=== PATIENT | female | born 1950 | race Caucasian/White ===

== ENCOUNTER 2022-08-09 13:15 | Emergency (ER) | payer BC ==
[2022-08-09] MEDS ORDERED: GLUCAGON 1 MG/VIAL ONE ×2 (13:43→14:15)
[2022-08-09] MEDS ORDERED: ONDANSETRON 4 MG/2 ML VIAL ONE (13:43)
[2022-08-09 13:57] LABS: Absolute Lymphocytes (CBC) 0.8 K/uL (0.7-4.9); Hematocrit 47.1 % (36.0-45.0); MCV 90.2 fL (80-100); MPV 7.3 fL (7.6-11.3); RBC Red Blood Cell Count 5.22 M/uL (3.86-4.86)
[2022-08-09 14:17] LABS: Magnesium 2.3 mg/dL (1.8-2.4); Potassium 3.7 mmol/L (3.5-5.1); Troponin High Sensitivity 4.5 pg/mL (<58.9)
--- NOTE | 2022-08-09 14:32 | RAD REPORT ---
EXAM DESCRIPTION: RAD - Chest Single View - 08/09/2022 2:18 pm CLINICAL HISTORY: dysphagia COMPARISON: No comparisons FINDINGS: Lines: None. Lungs: No evidence of edema or pneumonia. Pleural: No significant pleural effusions or pneumothorax. Cardiac: The heart size is within normal limits. Mediastinum: Within normal limits. Bones: No acute fractures. Other: Large hiatal hernia. IMPRESSION: No acute cardiopulmonary disease. Large hiatal hernia.
--- NOTE | 2022-08-09 15:07 | ER ---
Nurse's Notes [facility] Name: Serenity Barber Age: 72 yrs Sex: Female : 1950 Arrival Date: 08/09/2022 Time: 13:17 Bed 26 Private MD: Diagnosis: Foreign body of alimentary tract, part unspecified, initial encounter;Nausea with vomiting, unspecified Presentation: 08/09 13:25 Chief complaint: Ate roast beef for lunch, feels like it is stuck in throat. hb Coronavirus screen: At this time, the client does not indicate any symptoms associated with coronavirus-19. Ebola Screen: No symptoms or risks identified at this time. Initial Sepsis Screen: Does the patient meet any 2 criteria? No. Patient's initial sepsis screen is negative. Does the patient have a suspected source of infection? No. Patient's initial sepsis screen is negative. Risk Assessment: Do you want to hurt yourself or someone else? Patient reports no desire to harm self or others. Onset of symptoms was August 09, 2022. 13:25 Method Of Arrival: Ambulatory hb 13:25 Acuity: WILMER 3 hb Historical: - Allergies: 13:27 PENICILLINS; hb - PMHx: 17:40 Hypertensive disorder; GERD; Esophageal stricture; kb3 - PSHx: 13:27 Appendectomy; Cholecystectomy; hb 13:52 Esophageal Dilation; hb - Immunization history:: Adult Immunizations up to date, Client reports receiving the 2nd dose of the Covid vaccine, Last tetanus immunization: up to date. - Social history:: Smoking status: Patient denies any tobacco usage or history of. Screenin:30 Abuse screen: Denies threats or abuse. Denies injuries from another. Nutritional hb screening: No deficits noted. Tuberculosis screening: No symptoms or risk factors identified. Fall Risk None identified. Assessment: 13:30 Reassessment: Patient appears in no apparent distress at this time. No changes from previously documented assessment. General: Appears distressed, uncomfortable, Behavior is calm, cooperative, Received care of pt from triage via . PT reports she was eating roast beef around 1200 today. She now reports the feeling of a lodged food bolus in her lower esophagus with associated pain and vomiting. Pt reports she has had 4 esophageal dilation procedures. Pain: Complains of pain in xiphoid area Pain does not radiate. Pain currently is 7 out of 10 on a pain scale. GI: Reports nausea, vomiting, unable to swallow water, feeling of lodged food bolus in lower esophagus. 14:10 General: Pt attempted to drink a few small sips of water but vomited it back up. PA kb3 notified. 14:40 General: Pt tolerating sips of water at this time. Reports she still has the sensation kb3 of a foreign body in the lower esophagus, but it has improved. PA notified. 14:52 General: Pt vomited small amount of water. kb3 17:19 General: Report called to Gabriela ABEBE at [facility]. Pt aware of kb3 pending transfer. No questions at this time. 17:39 General: Reports given to [facility]. Pt states he will travel in in private kb3 vehicle and will take charge of the patient's purse, clothes and cell phone. Vital Signs: 13:25 BP 172 / 111; Pulse 104; Resp 20; Temp 98.3; Pulse Ox 97% on R/A; Weight 70.31 kg; hb Height 5 ft. 2 in. (157.48 cm); Pain 7/10; 14:15 BP 147 / 101; Pulse 97; Resp 20; Pulse Ox 98% ; kb3 14:45 BP 146 / 98; Pulse 95; Resp 18; Pulse Ox 98% ; kb3 15:00 BP 140 / 98; Pulse 93; Resp 18; Pulse Ox 97% ; kb3 16:00 BP 149 / 98; Pulse 90; Resp 20; Pulse Ox 97% ; kb3 17:00 BP 163 / 101; Pulse 87; Resp 18; Pulse Ox 98% ; kb3 13:25 Body Mass Index 28.35 (70.31 kg, 157.48 cm) hb ED Course: 13:17 Patient arrived in ED. am2 13:24 Hernandez Andrea PA is PHCP. cp 13:24 Kyree Watson MD is Attending Physician. cp 13:27 Triage completed. hb 13:27 Arm band placed on. hb 13:30 Patient has correct armband on for positive identification. Placed in gown. Bed in low hb position. Call light in reach. Side rails up X2. Warm blanket given. 13:30 No provider procedures requiring assistance completed. Inserted saline lock: 20 gauge hb in right antecubital area, using aseptic technique. Blood collected. 13:36 Nika Gonzales, MIS is Primary Nurse. hb 14:20 XRAY Chest (1 view) In Process Unspecified. EDMS 14:56 called the patient's GI Dr. Alireza Wylie at [phone]/ connected Rashaad Stahl eb the GI information systems consultant covering her doctor with Hernandez Tsang for patient transfer consultation. 15:18 intiated a transfer with Claudia Barron Rn from the [facility]. eb 15:52 per Claudia Barron Rn [facility] is at capacity and will have to decline the eb transfer/ informed her i will call Dr. Lopez back ad see what he wants to do. 16:10 called and spoke with the answering service for Dr. Lopez/ per Dr. Lopez they also have eb privileges at [facility]. 16:12 called and spoke with Claudia Barron Rn/ informed her what Dr. Lopez said/ She said she eb will call him and said she will call him and see what he wants to do. 16:50 administrative approval given by Claudia Barron Rn/ patient has been accepted to eb [facility] to their observation unit/ report to be called to [phone]/ Leslie Lopez 17:41 Patient transferred, IV remains in place. kb3 Administered Medications: 13:45 Drug: Zofran (Ondansetron) 4 mg Route: IVP; Site: right antecubital; hb 14:09 Follow up: Response: No adverse reaction; No change in condition kb3 13:45 Drug: Glucagon 1 mg Route: IVP; Site: right antecubital; hb 14:09 Follow up: Response: No adverse reaction; No change in condition kb3 14:11 CANCELLED (Physician Discretion): Ativan (LORazepam) 0.5 mg IVP once cp 14:25 Drug: GlucaGen (glucagon) 1 mg Route: IVP; Site: right antecubital; kb3 15:00 Follow up: Response: No adverse reaction; No change in condition kb3 Medication: 13:30 VIS not applicable for this client. hb Outcome: 15:06 ER care complete, transfer ordered by MD. cp 17:41 Transferred by ground EMS to [facility], Transfer form completed. X-rays sent kb3 w/ patient. 17:41 Condition: stable 17:41 Instructed on the need for transfer. 17:41 Patient left the ED. kb3 Signatures: Dispatcher [employer] EDMS Hernandez Andrea PA PA cp Baxter, Heather, RN RN Celina Rosales [facility] Ebony Michaud Kelly RN RN kb3 Corrections: (The following items were deleted from the chart) 15:15 14:56 called the patient's GI Dr. Alireza Wylie at [phone]/ connected Dr. Mcfarland eb the GI information systems consultant covering her doctor with Hernandez Tsang for patient transfer consultation. caterina
--- NOTE | 2022-08-09 15:07 | EDPHYS ---
Physician Documentation [facility] Name: Serenity Barber Age: 72 yrs Sex: Female : 1950 Arrival Date: 08/09/2022 Time: 13:17 Bed 26 Private MD: ED Physician Kyree Watson HPI: 08/09 13:45 This 72 yrs old Female presents to ER via Ambulatory with complaints of Foreign Body In cp Throat. 13:45 The patient presents with dysphagia, of both solids and liquids, a foreign body cp sensation in the throat. Onset: The symptoms/episode began/occurred today, after eating roast beef for lunch, patient feels like piece of food stuck in lower esophagus. Associated signs and symptoms: Pertinent positives: nausea, vomiting, Pertinent negatives chest pain, cough, diarrhea, fever. Patient reports having similar episodes in the past and has had multiple esophageal dilation procedures performed. Is a patient of DR Wylie, insulation engineman, in [place]. Historical: - Allergies: 13:27 PENICILLINS; hb - PMHx: 17:40 Hypertensive disorder; GERD; Esophageal stricture; kb3 - PSHx: 13:27 Appendectomy; Cholecystectomy; hb 13:52 Esophageal Dilation; hb - Immunization history:: Adult Immunizations up to date, Client reports receiving the 2nd dose of the Covid vaccine, Last tetanus immunization: up to date. - Social history:: Smoking status: Patient denies any tobacco usage or history of. ROS: 13:50 Constitutional: Negative for body aches, chills, fever, poor PO intake. cp 13:50 Eyes: Negative for injury, pain, redness, and discharge. cp 13:50 ENT: Positive for difficulty swallowing, Negative for drainage from ear(s), ear pain, difficulty handling secretions. 13:50 Cardiovascular: Negative for chest pain, edema, palpitations. 13:50 Respiratory: Negative for cough, shortness of breath, wheezing. 13:50 Abdomen/GI: Positive for nausea, vomiting, Negative for diarrhea, constipation, hematemesis. 13:50 Neuro: Negative for altered mental status, dizziness, headache, syncope, weakness. 13:50 All other systems are negative. Exam: 13:55 Constitutional: The patient appears in no acute distress, alert, awake, cp non-diaphoretic, non-toxic, well developed, well nourished. 13:55 Head/Face: Normocephalic, atraumatic. cp 13:55 Eyes: Periorbital structures: appear normal, Conjunctiva: normal, no exudate, no injection, Sclera: no appreciated abnormality, Lids and lashes: appear normal, bilaterally. 13:55 ENT: External ear(s): are unremarkable, Nose: is normal, Mouth: Lips: moist, Oral mucosa: pink and intact, moist, Posterior pharynx: Airway: no evidence of obstruction, patent, Tonsils: are normal in appearance, swelling, is not appreciated, erythema, is not appreciated, exudate, is not appreciated. 13:55 Neck: ROM/movement: is normal, is supple, without pain, no range of motions limitations, no nuchal rigidity. 13:55 Chest/axilla: Inspection: normal. 13:55 Cardiovascular: Rate: tachycardic, Rhythm: regular, Edema: is not appreciated, JVD: is not appreciated. 13:55 Respiratory: the patient does not display signs of respiratory distress, Respirations: normal, no use of accessory muscles, no retractions, labored breathing, is not present, Breath sounds: are clear throughout, no decreased breath sounds, no stridor, no wheezing. 13:55 Abdomen/GI: Inspection: abdomen appears normal, Palpation: abdomen is soft and non-tender, in all quadrants. 13:55 Back: pain, is absent, ROM is normal. 13:55 Neuro: Orientation: to person, place \T\ time. Mentation: is normal, Motor: moves all fours, strength is normal, Sensation: is normal. Vital Signs: 13:25 BP 172 / 111; Pulse 104; Resp 20; Temp 98.3; Pulse Ox 97% on R/A; Weight 70.31 kg; hb Height 5 ft. 2 in. (157.48 cm); Pain 7/10; 14:15 BP 147 / 101; Pulse 97; Resp 20; Pulse Ox 98% ; kb3 14:45 BP 146 / 98; Pulse 95; Resp 18; Pulse Ox 98% ; kb3 15:00 BP 140 / 98; Pulse 93; Resp 18; Pulse Ox 97% ; kb3 16:00 BP 149 / 98; Pulse 90; Resp 20; Pulse Ox 97% ; kb3 17:00 BP 163 / 101; Pulse 87; Resp 18; Pulse Ox 98% ; kb3 13:25 Body Mass Index 28.35 (70.31 kg, 157.48 cm) hb MDM: 13:30 Patient medically screened. cp 15:05 Data reviewed: vital signs, nurses notes, lab test result(s), radiologic studies, plain cp films. 15:05 Test interpretation: by ED physician or midlevel provider: plain radiologic studies. cp Counseling: I had a detailed discussion with the patient and/or guardian regarding: the historical points, exam findings, and any diagnostic results supporting the discharge/admit diagnosis, lab results, radiology results, the need to transfer to another facility, [facility] does not immediately have the required specialist. Response to treatment: the patient's symptoms have mildly improved after treatment, Patient reports continued sensation of esophageal foreign body. 08/09 13:35 Order name: Basic Metabolic Panel; Complete Time: 14:32 08/09 14:45 Interpretation: Normal except: GLUC 130; BUN 20. 08/09 13:35 Order name: CBC with Diff; Complete Time: 14:07 cp 08/09 14:08 Interpretation: Normal except: RBC 5.22; HGB 15.5; HCT 47.1; MPV 7.3; TRUPTI% 88.7; LYM% cp 10.0; MN% 1.0. 08/09 13:35 Order name: Magnesium; Complete Time: 14:32 cp 08/09 13:35 Order name: Troponin HS; Complete Time: 14:32 cp 08/09 17:29 Interpretation: Reviewed. 08/09 13:35 Order name: XRAY Chest (1 view); Complete Time: 14:44 cp 08/09 14:45 Interpretation: Report review. 08/09 14:59 Order name: SARS RAPID; Complete Time: 17:28 eb 08/09 17:28 Interpretation: Reviewed. 08/09 13:35 Order name: Cardiac monitoring; Complete Time: 16:20 cp 08/09 13:35 Order name: EKG - Nurse/Tech 08/09 13:35 Order name: IV Saline Lock; Complete Time: 13:40 cp 08/09 13:35 Order name: Labs collected and sent; Complete Time: 13:40 cp 08/09 13:35 Order name: O2 Per Protocol; Complete Time: 13:40 cp 08/09 13:35 Order name: O2 Sat Monitoring; Complete Time: 13:40 cp Administered Medications: 13:45 Drug: Zofran (Ondansetron) 4 mg Route: IVP; Site: right antecubital; hb 14:09 Follow up: Response: No adverse reaction; No change in condition kb3 13:45 Drug: Glucagon 1 mg Route: IVP; Site: right antecubital; hb 14:09 Follow up: Response: No adverse reaction; No change in condition kb3 14:11 CANCELLED (Physician Discretion): Ativan (LORazepam) 0.5 mg IVP once cp 14:25 Drug: GlucaGen (glucagon) 1 mg Route: IVP; Site: right antecubital; kb3 15:00 Follow up: Response: No adverse reaction; No change in condition kb3 Disposition Summary: 08/09/22 15:06 Transfer Ordered Transfer Location: [facility] cp Reason: Higher level of care cp Condition: Stable cp Problem: new cp Symptoms: have improved cp Accepting Physician: Ras Spaulding(08/09/22 17:41) kb3 Diagnosis - Foreign body of alimentary tract, part unspecified, initial encounter cp - Nausea with vomiting, unspecified cp Forms: - Medication Reconciliation Form cp - SBAR form cp Addendum: 08/10/2022 18:55 Co-signature as Attending Physician, Kyree Watson MD. r n Signatures: Dispatcher [employer] EDMS Manas Shi PA PA jmm Nieto, Roman, MD MD rn Page, Corey, PA PA cp Baxter, Heather, RN RN Neeru Donohue RN RN kb3 Corrections: (The following items were deleted from the chart) 08/09 14:11 14:11 Ativan (LORazepam) 0.5 mg IVP once ordered. cp cp 17:10 15:06 DR barbosa cp 17:10 17:10 Ras Spaulding cp cp 17:41 17:10 Ras Spaulding cp kb3 08/10 16:04 08/09 13:45 Patient reports having similar episodes in the past and has had multiple cp esophageal dilation procedures performed by DR Vaughn barbosa 08/10 16:54 08/09 13:45 Patient reports having similar episodes in the past and has had multiple cp esophageal dilation procedures performed. cp
[2022-08-09 15:20] LABS: SARS-CoV-2 Antigen Rapid Res Negative (Negative)
[2022-08-09 17:48] VITALS: TEMP 98.3
[2022-08-09 17:54] VITALS: BP 163/101; O2SAT 98
== END 2022-08-09 17:41 | disposition short-term general hospital (02) ==
LOC: ER 13:15
DX: T18.9XXA Foreign body of alimentary tract, part unspecified, initial encounter (principal); R11.2 Nausea with vomiting, unspecified; I10 Essential (primary) hypertension; Z20.822 Contact with and (suspected) exposure to COVID-19; Z88.0 Allergy status to penicillin
CPT/HCPCS: 36415; 71045; 80048; 83735; 84484; 85025; 87811; 96374; 96375; 99285; J1610; J2405